=== PATIENT | male | born 1975 | race Caucasian/White ===

== ENCOUNTER 2017-05-07 09:36 | Emergency (ER) | payer OTHER ==
[2017-05-07 09:42] VITALS: BP 131/92; PULSE 84; TEMP 98.3; BMI 27.1
--- NOTE | 2017-05-07 09:42 | PDOC ---
History of Present Illness - General Chief Complaint: Injury Stated Complaint: HEAD INJURY,LACERATION TO HEAD Time Seen by Provider: 05/07/17 09:42 History Source: Patient Exam Limitations: No Limitations - History of Present Illness Initial Comments: 05/07/17 10:45 Pt presents to the ED with laceration to the scalp after injuring his head on a car door frame. Denies LOC. Uncertain of last tetanus. Complains only of pain in the wound--denies headache, nausea or vomiting. Past History - Past Medical History Allergies/Adverse Reactions: Allergies Allergy/AdvReac Type Severity Reaction Status Date / Time No Known Allergies Allergy Verified 05/07/17 09:47 Home Medications: Ambulatory Orders NK [No Known Home Medication] 05/07/17 Review of Systems - Review of Systems Integumentary: Yes: Other (wound to scalp) Neurological: No: Symptoms reported, See HPI, Headache, Numbness, Paresthesia, Pre-Existing Deficit, Seizure, Tingling, Tremors, Weakness, Unsteady Gait, Ataxia, Dizziness, Other *Physical Exam - Physical Exam General Appearance: Yes: Nourished, Appropriately Dressed. No: Apparent Distress, Disheveled, Mild Distress, Moderate Distress, Severe Distress, Alcohol on Breath, Intoxicated, Cachetic, Obese, Thin, Other Integumentary: positive: Other (4 cm wound to scalp) Neurologic: positive: Fully Oriented, Alert, Normal Mood/Affect Procedures - Laceration/Wound Repair Head Wound Length: 2.6 to 5.0 cm Wound Explored: clean Wound's Depth, Shape: superficial, irregular Irrigated w/ Saline: Yes Betadine Prep: No Anesthesia: 2% Lidocaine w/ Epi Amount of Anesthetic (ccs): 8 Wound Debrided: minimal Wound Repaired With: [place] Number of Sutures: 4 Layer Closure: No Sterile Dressing Applied: No Splint Applied: No Sling Applied: No Medical Decision Making - Medical Decision Making 05/07/17 10:39 Pt presents to the ED with laceration to the forehead. Repaired in the ED. Will discharge home. *DC/Admit/Observation/Transfer Diagnosis at time of Disposition: Laceration of scalp Qualifiers: Encounter type: initial encounter Qualified Code(s): S01.01XA - Laceration without foreign body of scalp, initial encounter - Discharge Dispostion Disposition: HOME Condition at time of disposition: Good Admit: No - Referrals - Patient Instructions Printed Discharge Instructions: DI for Laceration Repair of the Scalp, Smoking Cessation Additional Instructions: return to the ED for fever, red hot tender swollen wound, pus from wound, confusion, passing out, other new or changing symptoms. Make sure that you return to the Ed in 7-10 days for staple removal. - Post Discharge Activity Forms/Work/School Notes: Back to Work
[2017-05-07] MEDS ORDERED: LIDOCAINE 1%/EPI 1:100000 (20 ML MULTI DOSE VIAL) INF ONE (09:45)
[2017-05-07] MEDS ORDERED: DIPHTH,PERTUSS(ACELL),TET 0.5 ML DISP.SYRIN IM ONE (09:50)
[2017-05-07] MEDS ORDERED: ACETAMINOPHEN 500 MG TABLET (FP) PO ONE (10:02)
== END 2017-05-07 10:45 | disposition home or self-care (01) ==
LOC: FER 09:36
PROC: 0HQ1XZZ Repair Face Skin, External Approach (ICD-10-PCS; principal; 2017-05-07)
PROC: 3E0234Z Introduction of Serum, Toxoid and Vaccine into Muscle, Percutaneous Approach (ICD-10-PCS; 2017-05-07)
DX: S01.81XA Laceration without foreign body of other part of head, initial encounter (principal); W22.8XXA Striking against or struck by other objects, initial encounter; Y93.89 Activity, other specified; Y92.9 Unspecified place or not applicable
CPT/HCPCS: 12013; 90471; 90715; 99282-25

== ENCOUNTER 2017-05-15 07:43 | Emergency (ER) | payer OTHER ==
[2017-05-15 07:48] VITALS: BP 135/80; PULSE 77; TEMP 98.1; BMI 25.6
--- NOTE | 2017-05-15 07:53 | PDOC ---
Suture Removal/Wound Check HPI - History of Present Illness Chief Complaint: Suture/Staple Removal(Here) Stated Complaint: staple removal Time Seen by Provider: 05/15/17 07:45 History Source: Yes: Patient Exam Limitations: Yes: No Limitations Treated at: [facility] ED Date of Last ED visit: 05/07/17 - Previous ED Treatment Type of procedure performed on last visit: Yes: Laceration Repair Tetanus Immunization: Yes: Up to Date Antibiotics Prescribed: No - Onset of Previous Treatment Date of Occurence: 05/07/17 Time of Occurence: 09:00 Comment:: 05/15/17 07:57 pt was here on 05/07 for lac repair, he has no complaints and is here for staple removal no headache, n/v, vision changes, f/c, redness, discharge Past History - Past Medical History Allergies/Adverse Reactions: Allergies Allergy/AdvReac Type Severity Reaction Status Date / Time No Known Allergies Allergy Verified 05/15/17 07:44 Home Medications: Ambulatory Orders NK [No Known Home Medication] 05/07/17 COPD: No - Suicide/Smoking/Psychosocial Hx Smoking History: Current every day smoker Have you smoked in the past 12 months: Yes Number of Cigarettes Smoked Daily: 10 Information on smoking cessation initiated: Yes 'Breaking Loose' booklet given: 05/15/17 Hx Alcohol Use: No Drug/Substance Use Hx: No Substance Use Type: None Suture Removal/Wound Check PE - Physical Exam Laceration/Wound Check Symptoms: reports: None Current Severity Level: None Maximum Severity Level: None Pain Localization: None Location of Laceration/Wound: left: Head Pain Radiation: None Comments: 05/15/17 07:[address] wound is well approximated/ closed no redness/swelling/discharge/induration 5 agapito removed Procedures - Consent Consent obtained: Verbal Medical Decision Making - Medical Decision Making 05/15/17 07:58 wound appears healing well, noninfected 5 sutures removed *DC/Admit/Observation/Transfer Diagnosis at time of Disposition: Removal of agapito Laceration of scalp Qualifiers: Encounter type: subsequent encounter Qualified Code(s): S01.01XD - Laceration without foreign body of scalp, subsequent encounter - Discharge Dispostion Disposition: HOME Condition at time of disposition: Improved Admit: No - Referrals Referrals: Rafael Flores MD [Staff Physician] - - Patient Instructions Printed Discharge Instructions: DI for Suture Removal Additional Instructions: Keep the area clean and dry Print Language: BENGALI - Post Discharge Activity
== END 2017-05-15 07:56 | disposition home or self-care (01) ==
LOC: FER 07:43
DX: Z48.02 Encounter for removal of sutures (principal)
CPT/HCPCS: 99281-25